=== PATIENT | male | born 1965 | race Caucasian/White ===

== ENCOUNTER 2017-03-02 14:08 | Emergency (ER) | payer SELFPAY ==
[~2017-03-02] VITALS: Ht 180.3 cm; Wt 83.0 kg
[~2017-03-02 14:08] MED LIST: CHLO25CA PO
[2017-03-02 14:12] VITALS: BP 183/97; PULSE 98; RESP 16; TEMP 98.7; O2SAT 99
[2017-03-02] MEDS ORDERED: CEPH-460 PO (15:00)
[2017-03-02] MEDS ORDERED: SULFAMETHOXAZOLE-TRIMETHOPRIM DS 800-160 MG TAB PO ONE (15:00)
[2017-03-02] MEDS ORDERED: BACT800T5 PO (15:00)
[2017-03-02] MEDS ORDERED: CEPHALEXIN MONOHYDRATE 500 MG CAP PO ONE (15:00)
[2017-03-02] MEDS ORDERED: TETANUS/DIPHTHERIA TOXOID ADULT 0.5 ML VIAL IM ONE (15:00)
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
== END 2017-03-02 15:45 | disposition home or self-care (01) ==
LOC: PHED 14:08
DX: L03.116 Cellulitis of left lower limb (principal); Z23 Encounter for immunization; Z86.14 Personal history of Methicillin resistant Staphylococcus aureus infection; Z86.79 Personal history of other diseases of the circulatory system; Z87.448 Personal history of other diseases of urinary system; Z87.39 Personal history of other diseases of the musculoskeletal system and connective tissue; Z86.69 Personal history of other diseases of the nervous system and sense organs
CPT/HCPCS: 90471; 90714

== ENCOUNTER 2017-11-14 14:18 | Emergency (ER) | payer SELFPAY ==
[~2017-11-14] VITALS: Ht 177.8 cm; Wt 89.8 kg
[2017-11-14] VITALS (8 sets, daily range): BP systolic 140–177; BP diastolic 71–121; PULSE 75–101; RESP 6–16; TEMP 98.8; O2SAT 96–99
[~2017-11-14 14:18] MED LIST changes: +BACT800T5 PO; +CEPH-460 PO; -CHLO25CA PO
[2017-11-14] MEDS ORDERED: ONDANSETRON HCL 4 MG/2 ML VIAL IV PUSH ONE (15:45)
[2017-11-14] MEDS ORDERED: SODIUM CHLOR 0.9% 1000 ML INJ 1,000 ML IV SCH (15:45)
[2017-11-14] MEDS ORDERED: MORPHINE SULFATE 4 MG/ML INJ IV PUSH ONE (15:45)
[2017-11-14] MEDS: LABETALOL HCL 100 MG/20 ML VIAL IV PUSH ONE ×2 (15:47→16:49)
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
[2017-11-14 15:49] LABS: AUTOMATED NEUTROPHIL # 7.4 TH/MM3 (1.8-7.7); BASOPHIL # 0.1 TH/MM3 (0-0.2); EOSINOPHIL # 0.2 TH/MM3 (0-0.4); EOSINOPHIL % 2.1 % (0.0-4.0); HEMATOCRIT 45.8 % (39.0-51.0); LYMPH % 22.7 % (9.0-44.0); LYMPHOCYTE # 2.5 TH/MM3 (1.0-4.8); MEAN CELL VOLUME 98.9 FL (80.0-100.0); MEAN CORPUSCULAR HEMOGLOBIN 34.5 PG (27.0-34.0); MEAN CORPUSCULAR HGB CONC 34.9 % (32.0-36.0); MONO % 7.1 % (0.0-8.0); MONOCYTE # 0.8 TH/MM3 (0-0.9); NEUT % 67.1 % (16.0-70.0); PLATELET COUNT 256 TH/MM3 (150-450); RED BLOOD COUNT 4.63 MIL/MM3 (4.50-5.90); RED CELL DISTRIBUTION WIDTH 13.5 % (11.6-17.2)
--- NOTE | 2017-11-14 15:59 | RADRPT ---
EXAM DATE/TIME: 11/14/2017 15:44 [facility] COMPARISON: CHEST SINGLE AP, April 19, 2012, 17:13. INDICATIONS : Left upper chest and left axilla pain with left arm numbness today. MEDICAL HISTORY : None. SURGICAL HISTORY : None. ENCOUNTER: Initial ACUITY: 1 day PAIN SCORE: 4/10 LOCATION: Left chest FINDINGS: A single view of the chest demonstrates the lungs to be symmetrically aerated without evidence of mas s, infiltrate or effusion. The cardiomediastinal contours are unremarkable. Osseous structures are intact. CONCLUSION: The lungs are clear. Kashif Grijalva MD on November 14, 2017 at 15:56 Board Certified Radiologist. This report was verified electronically.
[2017-11-14 16:06] LABS: INTERNATIONAL NORMALIZED RATIO 1.1 RATIO; PROTHROMBIN TIME - PATIENT 11.1 SEC (9.8-11.6)
[2017-11-14 16:35] LABS: ALBUMIN 3.7 GM/DL (3.4-5.0); ALKALINE PHOSPHATASE 119 U/L (45-117); ALT (GPT) 65 U/L (12-78); AST (GOT) 69 U/L (15-37); BICARBONATE 26.6 MEQ/L (21.0-32.0); BLOOD UREA NITROGEN 5 MG/DL (7-18); CALCIUM 9.1 MG/DL (8.5-10.1); CHLORIDE 97 MEQ/L (98-107); CREATININE 0.94 MG/DL (0.60-1.30); GLOMERULAR FILTRATION RATE 85 ML/MIN (>89); GLUCOSE,RANDOM 156 MG/DL (74-106); SODIUM (NA) 133 MEQ/L (136-145); TOTAL BILIRUBIN ADULT 1.4 MG/DL (0.2-1.0); TOTAL PROTEIN 8.2 GM/DL (6.4-8.2); TROPONIN I LESS THAN 0.02 NG/ML (0.02-0.05)
--- NOTE | 2017-11-14 16:39 | RADRPT ---
EXAM DATE/TIME: 11/14/2017 16:03 [facility] COMPARISON: No previous studies available for comparison. INDICATIONS : Right flank pain. ORAL CONTRAST: No oral contrast ingested. RADIATION DOSE: 13.58 CTDIvol (mGy) MEDICAL HISTORY : Cerebrovascular disease. Renal calculi. SURGICAL HISTORY : Orthopedic surgery. ENCOUNTER: Initial ACUITY: 2 days PAIN SCALE: 7/10 LOCATION: Right flank TECHNIQUE: Renal colic protocol. Volumetric scanning of the abdomen and pelvis was performed. Using automated exposure control and adjustment of the mA and/or kV according to patient size, radiation dose was kep t as low as reasonably achievable to obtain optimal diagnostic quality images. DICOM format image da ta is available electronically for review and comparison. FINDINGS: Right side: No calcified stones in the collecting system or right ureter. No evidence of hydronephrosis. Left side: No calcified stones in the collecting system or left ureter. No evidence of hydronephrosis. Bladder: Smooth margins. No calcifications within the lumen. Other: Diffuse fatty change of the liver stop no calcified gallstones. Normal dimension abdominal aorta. N o dilated loops of small or large bowel. Normal size configuration of the appendix. CONCLUSION: Negative renal colic CT. Kashif Grijalva MD on November 14, 2017 at 16:35 Board Certified Radiologist. This report was verified electronically.
[2017-11-14] MEDS ORDERED: POTASSIUM CHLORIDE 20 MEQ CONTROLLED RELEASE TAB PO ONE (16:45)
[2017-11-14] MEDS ORDERED: POTASSIUM CHLOR 20 MEQ PREMIX 100 ML IV ONE (16:45)
[2017-11-14] MEDS ORDERED: ZOFR4TAB3 SL (17:22)
[2017-11-14] MEDS ORDERED: POTA10TA2 PO (17:22)
[2017-11-14] MEDS ORDERED: LISI10TA3 PO (17:22)
[2017-11-14 17:43] LABS: BILIRUBIN, URINE NEG (NEG); BLOOD, URINE NEG (NEG); GLUCOSE,URINE NEG (NEG); KETONE, URINE NEG (NEG); NITRITE,URINE NEG (NEG); URINE COLOR YELLOW (YELLW/STRAW); URINE LEUKOCYTE ESTERASE NEG (NEG)
[2017-11-14 18:06] LABS: SQUAMOUS EPITHELIAL CELL URINE 0-5 /hpf (0-5); WBC, URINE 0-2 /hpf (0-5)
--- NOTE | 2017-11-14 21:53 | EKG ---
Date Performed: 11/14/2017 Time Performed: 15:57:28 PTAGE: 52 years EKG: Baseline artifact present Sinus rhythm BORDERLINE LEFT AXIS DEVIATION MODERATE VOLTAGE CRITERIA FOR LVH, CONSIDER NORMAL VARIANT Nonspecifi c T wave changes BORDERLINE ECG Compared to prior electrocardiogram, rate has increased and Nonspeci fic T wave changes are now present PREVIOUS TRACING : 04/20/2012 05.43 DOCTOR: Reece Lezama Interpretating Date/Time 11/14/2017 21:52:36
== END 2017-11-14 19:11 | disposition home or self-care (01) ==
LOC: PHED 14:18
DX: E87.6 Hypokalemia (principal); R74.0 Nonspecific elevation of levels of transaminase and lactic acid dehydrogenase [LDH]; B34.9 Viral infection, unspecified; I10 Essential (primary) hypertension; R94.31 Abnormal electrocardiogram [ECG] [EKG]; Z86.73 Personal history of transient ischemic attack (TIA), and cerebral infarction without residual deficits
CPT/HCPCS: 71045; 74176; 80053; 81001; 82550; 84484; 85025; 85610; 85730; 93005; 96361; 96365; 96366; 96375; 99285; J2270; J2405; J3480; J7030